=== PATIENT | female | born 1980 | race African-American/Black ===

== ENCOUNTER 2017-01-19 15:53 | Inpatient (IN) | payer OTHER ==
--- NOTE | ~2017-01-19 | CO ---
Unit #: [id number] #: [id number] Patient: MIRELLA RIZO [id number] [address] [address] [id number] I MR#: [id number] NAME: MIRELLA RIZO ROOM: 568 Age: 36 Sex: F Admission Date: 01/19/2017 : 1980 Attending Physician: Satish Marie M.D. Primary Care Physician: Saúl Resendiz M.D. Consultation Date: 01/19/2017 CONSULTATION REPORT REASON FOR CONSULTATION 1. Nausea and vomiting. 2. Epigastric pain. 3. Hematemesis. HISTORY OF PRESENT ILLNESS Thank you very much for asking us to see Ms. Shaikh. She is a 36-year-old black female, who presented with a 4 to 5 day history of epigastric pain. She states she has had persistent nausea and vomiting. The pain has been a deep burning pain going straight through to the back. She has been unable to take hardly anything by mouth. She states she has had multiple episodes of emesis with some blood present. She denies any lower GI bleeding. No melena. She presents at this time for further evaluation and treatment. She had a CT scan of the abdomen and pelvis, which showed no acute abnormality. PAST MEDICAL HISTORY Acute renal insufficiency in the past, hypertension, depression, ovarian cyst, x3. ALLERGIES No known medical allergies. MEDICATIONS At home; hydrochlorothiazide, Zoloft, and Norvasc. FAMILY HISTORY Hypertension. Negative for kidney disease. IMMUNIZATION STATUS Unknown. SOCIAL HISTORY Currently, occasional alcohol use. No current tobacco use. REVIEW OF SYSTEMS Negative except for above. PHYSICAL EXAMINATION GENERAL: Well-developed, well-nourished, black female, in no apparent distress. Afebrile. VITAL SIGNS: Stable. NECK: Supple. No thyromegaly or adenopathy. Unit #: [id number] #: [id number] Patient: MIRELLA RIZO BACK: No CVA or spinous tenderness. ABDOMEN: Flat, soft, nontender. EXTREMITIES: No calf tenderness. DIAGNOSTIC STUDIES LABORATORY RESULTS: Reveal the patient to have a hematocrit of 53.6, white count of 12. Electrolytes show a BUN of 36, creatinine 2.8, potassium of 3. Urinalysis was trace leukocyte esterase. IMPRESSION A 36-year-old black female with epigastric pain, hematemesis, and persistent nausea and vomiting. We have explained to the patient that we feel she should have upper endoscopy for further evaluation and treatment. All the risks and benefits have been fully explained to the patient in detail including the risk of bleeding, perforation, emergency surgery, , transfer, and other risks. She understands completely and requests to proceed. If this is negative, then she may need ultrasound of the gallbladder. Dictated by... Chaka Rogers/chilango TD: 01/20/2017 07:59 JOB #: [id number] CC: [facility] CONSULTATION REPORT Page 1 of 1 X Manuel Sandy MD X CONSULTATION REPORT
--- NOTE | ~2017-01-19 | EKG ---
PATIENT: MIRELLA RIZO UNIT #: [id number] Ventricular Rate: 80 BPM Atrial Rate: 80 BPM P-R Interval: 126 ms QRS Duration: 84 ms Q-T Interval: 416 ms QTC Calculation(Bezet): 479 ms P Lewis: 68 degrees Calculated R Lewis: 4 degrees Calculated T Lewis: 32 degrees Diagnosis Line: Normal sinus rhythm Diagnosis Line: Possible Left atrial enlargement Diagnosis Line: Possible Inferior infarct , age undetermined Diagnosis Line: Abnormal ECG Diagnosis Line: When compared with ECG of 08-OCT-2016 19:07, Diagnosis Line: Borderline criteria for Inferior infarct are now Diagnosis Line: Present Diagnosis Line: QT has shortened Diagnosis Line: Confirmed by RICK GILLESPIE, GARETT ([id number]) on 01/19/2017 Diagnosis Line: 11:07:39 PM INTERPRETING MD: RICK GILLESPIE
--- NOTE | ~2017-01-19 | DS ---
Unit #: [id number] #: [id number] Patient: MIRELLA RIZO [id number] [address] [address] [id number] I MR#: [id number] NAME: MIRELLA RIZO ROOM: 568 Age: 36 Sex: F Admission Date: 01/19/2017 : 1980 Discharge Date: 01/21/2017 Attending Physician: Satish Marie M.D. Primary Care Physician: Saúl Resendiz M.D. DISCHARGE SUMMARY ADMITTING DIAGNOSES 1. Intractable nausea and vomiting. 2. Acute kidney injury. 3. Hypotension. DISCHARGE DIAGNOSES 1. Intractable nausea and vomiting. 2. Acute kidney injury. 3. Hypotension. 4. Gastritis. 5. Urinary tract infection. CONSULTANTS Dr. Sandy. PROCEDURES DONE EGD. Findings of the EGD - Small hiatal hernia with some distal esophagitis. The patient had antral, as well as proximal, gastritis and ulcerative duodenitis. HISTORY OF PRESENT ILLNESS The patient is a 36-year-old lady with a past medical history of depression and hypertension. Was admitted main because of hypotension. She was also noted to have acute kidney injury in the hospital course. She complained of having intractable nausea and vomiting prior to hospitalization. HOSPITAL COURSE She was started on IV fluids, empirically started on antimicrobials. UA showed around 25 WBCs. Urine culture was negative. I fear the urine culture was sent after the antimicrobials were started. She is clinically doing better. She wants to go home. We will discharge her home. She was seen by Dr. Sandy. She had an EGD and was noted to have gastritis, started on Protonix. Will discharge her home. She also complains of having a burning sensation passing urine. Will treat her with Omnicef empirically. PHYSICAL EXAMINATION ON THE DAY OF DISCHARGE VITAL SIGNS: Temperature 98.7, pulse 62, respiration 18, blood pressure 137/57. GENERAL: The patient is obese, alert and oriented x3, lying in bed, no acute distress. HEENT: Normocephalic, atraumatic. No icterus. PERRLA. Extraocular muscles intact. Unit #: [id number] #: [id number] Patient: MIRELLA RIZO NECK: Supple. No JVD. HEART: S1, S2. Regular rate and rhythm. ABDOMEN: Soft, nontender. EXTREMITIES: No edema. Normal pulses. DISCHARGE MEDICATIONS 1. Omnicef 300 mg b.i.d. 2. Norvasc 10 mg daily. 3. HCTZ (captopril) 25 mg p.o. daily. 4. Sucralfate 1 gram p.o. daily. 5. Protonix 40 mg daily. FOLLOWUP She is instructed to follow with her primary care and also with urology as an outpatient. NOTE: Total time spent in her care - 28 minutes. Dictated by... Chaka Quiñones/tejinder TD: 01/23/2017 07:33 JOB #: [id number] DISCHARGE SUMMARY Page 1 of 1 X X DISCHARGE SUMMARY
--- NOTE | ~2017-01-19 | HP ---
Unit #: [id number] #: [id number] Patient: MIRELLA RIZO [id number] [address] [place], [place] [address] [id number] I MR#: [id number] NAME: MIRELLA RIZO ROOM: 23664 Age: 36 Sex: F Admission Date: 01/19/2017 : 1980 Attending Physician: Aida Martínez M.D. Primary Care Physician: Saúl Resendiz M.D. HISTORY AND PHYSICAL CHIEF COMPLAINT Intractable nausea and vomiting with abdominal pain, acute kidney injury, and hypotension. HISTORY OF PRESENT ILLNESS This pleasant 36-year-old female with history of hypertension and depression is admitted for hypotension. The patient was well until four days ago when she developed intractable nausea and vomiting. This was associated with upper mid abdominal pain and pain into the back. Patient has been unable to take p.o. and more recently developed postural lightheadedness. She states that over the past 24 hours she does note some blood streaking of her emesis. No diarrhea with the above and no ill contacts or eating anything out of the ordinary. She has been experiencing fevers, sweats, and chills and denies urinary symptoms. She was seen by Dr. Resendiz today and was noted to be hypotensive in his office and therefore sent to the hospital. In the ER, she has been given two liters of saline with some improvement of her symptoms, potassium, magnesium, Zofran, and Rocephin. Her urine does show mild pyuria. Her CT scan of the abdomen and pelvis is essentially negative. Labs however, show a BUN of 36 and creatinine 2.8, up from the patient's baseline BUN of 10 and creatinine of 1.1 last April. Of note, the patient has been admitted in the past for a similar episode of acute kidney injury and pyelonephritis a year ago. PAST MEDICAL HISTORY 1. Previous history of acute kidney injury. 2. Hypertension. 3. Depression. 4. Ovarian cyst. 5. section x3. ALLERGIES No known drug allergies. HOME MEDICATIONS 1. Hydrochlorothiazide 25 mg daily. 2. Zoloft 50 mg daily. 3. Norvasc 10 mg daily. FAMILY HISTORY Positive for hypertension. Negative for kidney disease. Unit #: [id number] #: [id number] Patient: MIRELLA RIZO SOCIAL HISTORY The patient lives with her three children. She stopped smoking four year ago and drinks alcohol occasionally. REVIEW OF SYSTEMS Notable for abdominal pain, nausea, vomiting, small amount of hematemesis, lightheadedness, fever, sweats, chills, pain in the legs and back, depression, hypertension, and above-mentioned surgeries. All other systems were reviewed and are otherwise negative. PHYSICAL EXAMINATION GENERAL: A pleasant, mildly obese, 36-year-old female currently in no acute distress. VITAL SIGNS: Temperature 98.6, pulse 85, respirations 16, blood pressure 101/53, and O2 saturation is 100% on room air. HEENT: Eyes PERRLA. Extraocular muscles are intact. Pharynx is benign. NECK: Supple. Patient does have a generous thyroid on exam. No adenopathy. CHEST: Clear. BACK: Without CVA tenderness. CARDIAC: Normal S1 and S2, without S3, S4, or murmur. ABDOMEN: Bowel sounds are present. Patient is tender in the epigastric region with rebound guarding. Abdomen is soft. No hepatosplenomegaly or masses. EXTREMITIES: Without clubbing, cyanosis, or edema. Pedal pulses are present. NEUROLOGIC: Patient is awake, alert, and oriented. Cranial nerves are intact. Equal strength throughout. DIAGNOSTIC STUDIES ADMISSION LABORATORY: Hematocrit is 53.6, white blood count is 12, and normal platelet count. SMA-12 with BUN 36, creatinine 2.8, sodium 132, potassium 3, and chloride 97. Lactic acid is normal. Cardiac markers negative. Urinalysis with trace leukocyte esterase and 10-25 white cells but moderate squamous cells making this a poor specimen and no bacteria. IMAGING: CT scan of the abdomen and pelvis is essentially negative. IUD is noted. CARDIOLOGY: EKG shows normal sinus rhythm, rate 80, normal appearing. ASSESSMENT 1. Intractable nausea and vomiting with epigastric pain for the past four days. Patient did note some small amount of hematemesis over the past 24 hours. 2. Acute kidney injury. 3. Possible urinary tract infection. 4. Hypokalemia. 5. History of essential hypertension. 6. Hypovolemic hyponatremia. PLANS 1. IV fluids. 2. Hold Norvasc. Will discontinue hydrochlorothiazide given previous episodes of acute kidney injury when ill. 3. Proton pump inhibitor. 4. Antibiotics pending culture results of the urine. 5. SCDs for DVT prophylaxis. Unit #: [id number] #: [id number] Patient: MIRELLA RIZO 6. Obtain TSH and repeat labs in the morning. 7. Amylase and lipase. If amylase and lipase are normal, will ask [facility] to consult. 1. Dictated by Chaka Loja/suzanne TD: 01/19/2017 22:08 JOB #: [id number] HISTORY AND PHYSICAL Page 1 of 1 X Aida Martínez MD X HISTORY AND PHYSICAL
--- NOTE | ~2017-01-19 | US67 ---
[facility] A Service of [facility] RADIOLOGY TEXT RESULTS PATIENT: MIRELLA RIZO LOCATION: [facility] : [birth year] UNIT #: [id number] AGE: [address]: Satish Marie MD SEX: F ORDER DR: [id number] [facility] [address] [facility] [place], [place] [address] [id number] I MR#: [id number] #: [id number] NAME: MIRELLA RIZO : 1980 SEX: F STUDY DATE/TIME: 01/20/2017 13:38 UNIT: [facility] ROOM: [facility] STUDY DESCRIPTION: US Gallbladder Attending Physician: Satish Marie M.D. Ordering Physician: Manuel Sandy M.D. Primary Care Physician: Saúl Resendiz M.D. MEDICAL IMAGING REPORT This report is preliminary unless electronic signature is present EXAM Right upper quadrant abdominal ultrasound INDICATIONS Midline abdominal pain. Acute onset. PROCEDURE Lino-scale and Doppler imaging right upper quadrant of the abdomen. COMPARISON CT from 01/19/2017 FINDINGS Study is degraded by bowel gas. Liver measures 14.2 cm, no liver mass is seen on submitted images. Unremarkable appearance of the gallbladder. The right kidney measures 12.2 cm, no hydronephrosis. Common duct measures 2 mm. IMPRESSION Study is somewhat limited by bowel gas but otherwise negative right upper quadrant ultrasound. Dictated by... Ashwin Prajapati M.D. THIS IS AN ELECTRONICALLY VERIFIED REPORT Ashwin Prajapati M.D. at 01/21/2017 7:19 AM EED/psc TD: 01/20/2017 22:13 JOB #: [id number] [facility] A Service [facility] RADIOLOGY TEXT RESULTS PATIENT: MIRELLA RIZO LOCATION: [facility] : [birth year] UNIT #: [id number] AGE: [address]: Satish Marie MD SEX: F ORDER DR: MEDICAL IMAGING REPORT Page 1 of 1 COPY
--- NOTE | ~2017-01-19 | CT4 ---
[facility] A Service of [facility] RADIOLOGY TEXT RESULTS PATIENT: MIRELLA RIZO LOCATION: [facility] 568-01 : [birth year] UNIT #: [id number] AGE: [address]: Satish Marie MD SEX: F ORDER DR: [id number] [facility] [address] [place], [place] [address] [id number] I MR#: [id number] #: [id number] NAME: MIRELLA RIZO : 1980 SEX: F STUDY DATE/TIME: 01/19/2017 17:34 UNIT: CEDOF ROOM: 23303 STUDY DESCRIPTION: CT Abd and Pelv Wo Cont Attending Physician: Aida Martíenz M.D. Ordering Physician: Truman Gabriel M.D. Primary Care Physician: Saúl Resendiz M.D. MEDICAL IMAGING REPORT This report is preliminary unless electronic signature is present EXAM Abdomen and pelvis CT no contrast 01/19/2017 INDICATIONS 36-year-old female with low back pain and dizziness for 5 days, hypertension, diabetes. TECHNIQUE Noncontrast abdomen and pelvis CT was performed. This CT exam was performed with one or more of the following radiation dose reduction techniques: automatic exposure control, adjustment of mA and/or kV according to patient size, and iterative reconstruction. COMPARISON 10/08/[address] abdomen: Exam markedly degraded by noncontrast technique. Included lung bases are clear. There is no effusion or pericardial effusion. Aorta demonstrates atherosclerotic change but no aneurysm. Spleen and adrenal glands are unremarkable. Pancreas unremarkable. Gallbladder and liver unremarkable. No hydronephrosis of either kidney. Cortical scarring, left greater than right. Incidental benign adenoma or benign cyst arising from the upper pole left kidney. Ureters not well visualized or assessed. CT pelvis: Bladder unremarkable. Intrauterine device present. Dominant follicle or small cyst in the right ovary measures 2.6 cm and appears physiologic. [facility] A Service of [facility] RADIOLOGY TEXT RESULTS PATIENT: MIRELLA RIZO LOCATION: [facility] 568-01 : [birth year] UNIT #: [id number] AGE: [address]: Satish Marie MD SEX: F ORDER DR: There is no bowel obstruction or focal inflammatory change of the bowel. Appendix diminutive but otherwise normal. Inguinal canals are unremarkable. No suspicious bone lesion. IMPRESSION 1. No clearly acute process identified. No bowel obstruction, drainable fluid collection or focal area of inflammatory change. 2. Incidental intrauterine device. Incidental dominant follicle or small cyst on the right ovary. Dictated by... Jemal Renee M.D. THIS IS AN ELECTRONICALLY VERIFIED REPORT Jemal Renee M.D. at 01/20/2017 11:40 AM MARY/ryan TD: 01/19/2017 23:11 JOB #: [id number] MEDICAL IMAGING REPORT Page 1 of 1 COPY
--- NOTE | ~2017-01-19 | OR ---
Unit #: [id number] #: [id number] Patient: MIRELLA RIZO [id number] [address] [address] [id number] I MR#: [id number] NAME: MIRELLA RIZO ROOM: 568 Date of Procedure: 01/20/2017 Admission Date: 01/19/2017 Surgeon: Manuel Sandy M.D. : 1980 Attending Physician: Satish Marie M.D. Primary Care Physician: Saúl Resendiz M.D. OPERATIVE REPORT PREOPERATIVE DIAGNOSES 1. Epigastric pain. 2. Nausea and vomiting. 3. Hematemesis. POSTOPERATIVE DIAGNOSES 1. Epigastric pain. 2. Nausea and vomiting. 3. Hematemesis. PROCEDURES PERFORMED 1. Esophagogastroduodenoscopy. 2. Biopsy of antrum for Helicobacter pylori testing. ANESTHESIA Monitored anesthesia care. FINDINGS The patient was found to have a small hiatal hernia and some distal esophagitis. The patient had antral as well as proximal gastritis and ulcerative duodenitis was present. SPECIMENS Sent to pathology. COMPLICATIONS None apparent. CONDITION The patient tolerated the procedure well. INDICATIONS FOR PROCEDURE The patient is a 36-year-old black female, who has had persistent nausea, vomiting, and epigastric pain. She has had hematemesis. She presents at this time for evaluation by upper endoscopy. DESCRIPTION OF PROCEDURE After obtaining informed consent, the patient was brought to the endoscopy suite and after adequate monitored anesthesia care, had the endoscope placed through the mouth into the upper esophagus under direct vision. It was advanced to the second portion of the duodenum without difficulty with Unit #: [id number] #: [id number] Patient: MIRELLA RIZO the lumen always in view. The third portion of the duodenum was normal. The second portion of the duodenum and duodenal bulb had duodenitis present as well as some ulcerative duodenitis. There was no evidence of active bleeding. The pylorus opened normally. There was some antral gastritis present and a biopsy was obtained for Helicobacter pylori testing. On retroflexing back to the GE junction, the patient was found to have a small hiatal hernia. No other abnormalities were found in the proximal third, middle third, or incisura. On pulling back above the GE junction, there was some distal esophagitis present. The remaining portion of the esophagus was within normal limits. Laryngeal structures were grossly normal as viewed from above. The patient went from the endoscopy suite to the recovery area in stable condition. RECOMMENDATIONS Continue Protonix. Add Carafate and antacids. We will check an ultrasound of the gallbladder for completeness. Dictated by... Chaka Rogers/chilango TD: 01/20/2017 08:10 JOB #: [id number] CC: [facility] OPERATIVE REPORT Page 1 of 1 X Manuel Sandy MD X PROCEDURE OPERATIVE NOTE
[2017-01-19 15:21] LABS: BASOPHIL# 0.1 X10e3 (0-0.3); BASOPHIL% 0.5 % (0-2.5); EOSINOPHIL# 0.1 X10e3 (0-0.7); EOSINOPHIL% 0.9 % (0.0-7.0); HEMATOCRIT 53.6 % (35.0-45.0); HEMOGLOBIN 17.6 gm/dL (12.0-16.0); LYMPHOCYTE# 3.3 X10e3 (1.0-3.5); LYMPHOCYTE% 27.5 % (17.0-45.0); MEAN CELL VOLUME 90.9 FL (83-96); MEAN CORPUSCULAR HEMOGLOBIN 29.8 PG (28-34); MEAN CORPUSCULAR HGB CONC 32.8 g/dL (30-36); MEAN PLATELET VOLUME 8.2 FL (6.5-11.5); MONOCYTE# 1.2 X10e3 (0-1.0); MONOCYTE% 10.1 % (3.0-12.0); NEUTROPHIL# 7.2 X10e3 (1.5-7.1); PLATELET COUNT 297 X10e3 (140-420); RED BLOOD COUNT 5.89 X10e (3.90-5.30); RED CELL DISTRIBUTION WIDTH 13.7 % (11.0-15.5); WHITE BLOOD COUNT 11.9 X10e3 (4.0-10.5)
[2017-01-19 15:22] LABS: DIFF IND NO
[2017-01-19 15:34] LABS: ALBUMIN SERUM 4.3 g/dL (3.5-5.0); BILIRUBIN, DIRECT 0.1 mg/dL (0.0-0.2); BILIRUBIN,INDIRECT 0.5 mg/dL (0.0-0.9); BILIRUBIN,TOTAL 0.6 mg/dL (0.2-2.0); BUN/CREATININE RATIO 12.85; CALCIUM SERUM 9.2 mg/dL (8.4-10.2); CREATININE SERUM 2.8 mg/dL (0.6-1.4); GLOM FILT RATE Estimated 23.8 mL/min (>60); PROTEIN TOTAL SERUM 7.3 g/dL (6.0-8.3)
[~2017-01-19 15:53] MED LIST: AMLODIPINE BESY10 MG PO; CELEXA20 M1 PO; DESYREL50 MG PO; DYAZIDE 37.5/251 CAP PO; GLUCOPHAGE XR500 MG PO; HYDROCODONE-A1 UDTA3 PO; LEVAQUIN750 M1 PO; NO MEDICATIONS; PAIN RELIEF325 MG PO; TOPROL XL 50 MG50 MG PO
[2017-01-19 16:22] LABS: MAGNESIUM 2.4 mg/dL (1.6-3.0); PHOSPHOROUS 3.5 mg/dL (2.5-4.6)
[2017-01-19 16:57] LABS: URINE SOURCE CLEAN CATCH
[2017-01-19 17:10] LABS: URINE APPEARANCE CLOUDY; URINE BLOOD NEG (NEG); URINE COLOR DK YELLOW; URINE GLUCOSE NEG (NEG); URINE KETONE 1+ (NEG); URINE LEUKOCYTE ESTERASE TRACE (NEG); URINE NITRATE NEG (NEG); URINE PROTEIN 1+ (NEG); URINE SPECIFIC GRAVITY 1.026 (1.003-1.035)
[2017-01-19 17:15] LABS: CULTURE INDICATED? YES; URINE BACTERIA AUWI NEG (NEGATIVE); URINE SQUAMOUS EPITHELIAL CELL MOD /[HPF]
[2017-01-19 17:15] LABS: POC - CKMB <1.0 ng/mL (0.0-7.9); POC - TROPONIN <0.05 ng/mL (<=0.05)
[2017-01-19 17:16] LABS: URINE BILIRUBIN NEG (NEG)
[2017-01-19 20:12] LABS: POC - CKMB <1.0 ng/mL (0.0-7.9); POC - TROPONIN <0.05 ng/mL (<=0.05)
[2017-01-19 22:54] LABS: AMYLASE 50 U/L (0-46); LIPASE 31 U/L (22-51)
[2017-01-19] MEDS ORDERED: CAPOZIDE PO (22:55)
[2017-01-19] MEDS ORDERED: NORVASC10 MG PO (22:56)
[2017-01-19] MEDS ORDERED: ZOLOFT50 MG PO (22:56)
[2017-01-20 06:13] LABS: BASOPHIL% 0.4 % (0-2.5); EOSINOPHIL# 0.1 X10e3 (0-0.7); EOSINOPHIL% 1.2 % (0.0-7.0); HEMATOCRIT 46.4 % (35.0-45.0); LYMPHOCYTE% 37.1 % (17.0-45.0); MEAN CELL VOLUME 90.8 FL (83-96); MEAN CORPUSCULAR HEMOGLOBIN 30.2 PG (28-34); MEAN CORPUSCULAR HGB CONC 33.3 g/dL (30-36); MEAN PLATELET VOLUME 8.2 FL (6.5-11.5); MONOCYTE# 0.6 X10e3 (0-1.0); MONOCYTE% 7.7 % (3.0-12.0); NEUTROPHIL# 4.3 X10e3 (1.5-7.1); NEUTROPHIL% 53.6 % (40-75); PLATELET COUNT 221 X10e3 (140-420); RED BLOOD COUNT 5.11 X10e (3.90-5.30); RED CELL DISTRIBUTION WIDTH 13.7 % (11.0-15.5)
[2017-01-20 06:26] LABS: DIFF IND NO; HEMOGLOBIN 15.4 gm/dL (12.0-16.0)
[2017-01-20 07:52] LABS: BUN/CREATININE RATIO 18.66; CALCIUM SERUM 8.7 mg/dL (8.4-10.2); CREATININE SERUM 1.5 mg/dL (0.6-1.4); GLOM FILT RATE Estimated 50.7 mL/min (>60); MAGNESIUM 2.1 mg/dL (1.6-3.0); POTASSIUM 3.2 mmol/L (3.5-5.1)
[2017-01-21 08:26] LABS: HEMATOCRIT 43.5 % (35.0-45.0); HEMOGLOBIN 14.3 gm/dL (12.0-16.0); MEAN CELL VOLUME 92.1 FL (83-96); MEAN CORPUSCULAR HEMOGLOBIN 30.3 PG (28-34); MEAN CORPUSCULAR HGB CONC 32.9 g/dL (30-36); MEAN PLATELET VOLUME 8.1 FL (6.5-11.5); RED BLOOD COUNT 4.73 X10e (3.90-5.30); RED CELL DISTRIBUTION WIDTH 13.7 % (11.0-15.5); WHITE BLOOD COUNT 6.9 X10e3 (4.0-10.5)
[2017-01-21 09:03] LABS: BUN/CREATININE RATIO 14.54; CALCIUM SERUM 8.4 mg/dL (8.4-10.2); CREATININE SERUM 1.1 mg/dL (0.6-1.4); GLOM FILT RATE Estimated 73.8 mL/min (>60); MAGNESIUM 1.9 mg/dL (1.6-3.0); POTASSIUM 3.2 mmol/L (3.5-5.1)
[2017-01-21] MEDS ORDERED: PROTONIX40 M1 (17:42)
[2017-01-21] MEDS ORDERED: SUCRALFATE1 GM/10 ML PO (17:45)
[2017-01-21] MEDS ORDERED: OMNICEF300 MG PO (17:48)
== END 2017-01-21 18:40 | disposition home or self-care (01) | DRG 683 ==
LOC: CED 15:53 → CEDOF 21:30 → C5C 23:31
PROVIDERS: Emergency Medicine; Internal Medicine; Nurse Practitioner; Surgery
PROC: 0DB78ZX Excision of Stomach, Pylorus, Via Natural or Artificial Opening Endoscopic, Diagnostic (ICD-10-PCS; principal; 2017-01-20 07:03)
DX: N17.9 Acute kidney failure, unspecified (principal); N39.0 Urinary tract infection, site not specified; K92.0 Hematemesis; I95.9 Hypotension, unspecified; E87.1 Hypo-osmolality and hyponatremia; K29.70 Gastritis, unspecified, without bleeding; Z87.891 Personal history of nicotine dependence; E87.6 Hypokalemia; I10 Essential (primary) hypertension; K20.9 Esophagitis, unspecified; K29.80 Duodenitis without bleeding; F32.9 Major depressive disorder, single episode, unspecified; Z82.49 Family history of ischemic heart disease and other diseases of the circulatory system
CPT/HCPCS: 36415; 74176; 76705; 80048; 80076; 81003; 82150; 82553; 82947; 83605; 83690; 83735; 84100; 84443; 84484; 84703; 85025; 85027; 87040; 87077; 87086; 93005; 96361; 96374; 99285; C9113; J0696; J2250; J2405